=== PATIENT | male | born 1960 ===

== ENCOUNTER 2017-05-23 11:25 | Day surgery (SDC) | payer BC ==
[2017-05-19 07:32] VITALS: BMI 29.4
[2017-05-23] MEDS ORDERED: ceFAZolin IV 2 gm in Dextrose 1 GM/50 ML BAG IVPB ONE (13:27)
[2017-05-23] MEDS ORDERED: Lidocaine 1% Inj (20ml) ONE (13:27)
[2017-05-23] MEDS ORDERED: Midazolam 2 MG/2 ML VIAL ONE (13:28)
[2017-05-23] MEDS ORDERED: Propofol 10 mg/ml Inj (20 ML) ONE (13:28)
[2017-05-23] MEDS ORDERED: Bupivacaine HCl 0.25% PF (10 ml) Inj ONE (13:28)
[2017-05-23] MEDS ORDERED: Phenylephrine 10 mg/ml Inj ONE (13:34)
[2017-05-23] MEDS ORDERED: ePHEDrine 50 mg/ml Inj ONE (13:36)
[2017-05-23] MEDS ORDERED: Lactated Ringer's 1,000 ML IV ONE ×2 (13:40→16:01)
--- NOTE | 2017-05-23 15:01 | PCM.SURG1 ---
Surgeon's Initial Post Op Note - Surgeon's Notes Surgeon: Dr. Rowe Insulation Cutter And Former: Dr. Mendoza PGY-2 Type of Anesthesia: General Endo Pre-Operative Diagnosis: multiple lipomas. Right upper extremity. Left upper extremity. left flank Operative Findings: see operative report Post-Operative Diagnosis: same Operation Performed: excision of multiple lipomas. Right upper extremity x14. Left upper extremeity x11. Left flank x 1 Specimen/Specimens Removed: lipomas x 26 Estimated Blood Loss: EBL {In ML}: 100 Blood Products Given: N/A Drains Used: No Drains Post-Op Condition: Good Date of Surgery/Procedure: 05/23/17 Time of Surgery/Procedure: 15:01
[2017-05-23] MEDS ORDERED: HYDROmorphone 0.5 mg/0.5 ml ISec IVP PRN (15:10)
[2017-05-23] MEDS ORDERED: Oxycodone/Acetaminophen 5/325 mg Tab PO PRN (15:22)
[2017-05-23 16:42] VITALS: TEMP 97.8
[2017-05-23 16:53] VITALS: BP 168/81; PULSE 73; RESP 18; O2SAT 100
--- NOTE | 2017-05-24 01:21 | OP ---
PROCEDURE DATE: 05/23/2017 PREOPERATIVE DIAGNOSIS: Multiple lipomas, both arms and left chest. PROCEDURE CARRIED OUT: Excision of 26 lipomas varying size from 3 cm to 1 cm; 12 on the left arm, 1 on the left chest, and 13 on the right arm. DESCRIPTION OF PROCEDURE: The patient was given general anesthesia, intravenous antibiotics. The area was prepped and draped with Hibiclens. The areas were previously marked and revealed to the patient. These were then excised serially starting at the wrist and going proximally cleared on both sides. After this was done, the hemostasis was obtained. The wounds were then closed. Blood loss for the procedure was less than a 100 cc. Operation carried out; excision of 26 lipomas; 12 on the left arm, 1 from the left chest, and 13 from the right arm. Sarthak Rowe Jr., MD cc: Dr. Fofana
== END 2017-05-23 17:10 | disposition home or self-care (01) ==
LOC: C.SDS 11:25
PROVIDERS: ATTEND Surgery Vascular Surgery
DX: D17.1 Benign lipomatous neoplasm of skin and subcutaneous tissue of trunk (principal); D17.22 Benign lipomatous neoplasm of skin and subcutaneous tissue of left arm; D17.21 Benign lipomatous neoplasm of skin and subcutaneous tissue of right arm
CPT/HCPCS: 11401; 11402; 11403; 88304; J0690; J2001; J2250; J2370; J2405; J2704; J3010; J7120